=== PATIENT | female | born 1955 | race Caucasian/White ===

== ENCOUNTER 2023-11-19 17:46 | Emergency (ER) | payer SELFPAY ==
--- NOTE | 2023-11-19 17:45 | DI.CT_ITS ---
Exam(s) CT HEAD WO EXAM: CT HEAD WO CLINICAL HISTORY: Acute psychosis. TECHNIQUE: Imaging Protocol: Axial computed tomography images with coronal and sagittal reformatted images were created and reviewed COMPARISON: No exams were available for comparison FINDINGS: There are no skull fractures. There is no fluid in the visualized paranasal sinuses. There is no evidence of intracranial hemorrhage, mass effect, or shift of midline structures. There are no extra-axial fluid collections. The ventricles are not enlarged or shifted and there is no blo od within the ventricular system nor within the basal cisterns. IMPRESSION: No acute intracranial findings on this noninfused CT scan of the brain. RADIATION DOSE DELIVERED: 717.21mGy.cm Total DLP DATA REPOSITORY: All CT scans at this facility are submitted to the National Radiology Data Registry (NRDR) Dose Index Registry (DIR) with the [employer] (ACR). RADIATION OPTIMIZATION: All CT scans at this facility use at least one of these dose optimization te chniques: automated exposure control; mA and/or kV adjustment per patient size (includes targeted exa ms where dose is matched to clinical indication); or iterative reconstruction.
[2023-11-19 17:50] VITALS: BP 139/99; PULSE 100; RESP 18; TEMP 36.2; O2SAT 97
--- NOTE | 2023-11-19 18:03 | ED.GENADUL_ITS ---
Discharge Plan Discharge Details Chief Complaint: PsychEval Clinical Impression: Acute psychosis Primary Care Provider: None,None ED Provider: Paramjit Ureña Home Meds and New Rx's Prescriptions: No Action No Known Home Meds HPI General Date/Time Provider Initiated Documentation: 11/19/23 17:48 . HPI Narrative: 68-year-old female with no known past medical history to us presents today for an eye psychotic episode. Mental health brought the patient in, they received a call from another client of the current patient's atypical behavior. When they went there the patient began stating that she is hearing voices from [employer], and he was telling me to kill the people in the house in really horrible and evil ways. And I feel like I have to do that but at the same time I feel horrible about feeling that way and so I want to kill myself because I feel horrible about those thoughts. Also and I know with some of the SALMA, they do it through their glasses, I can hear them cranking up the volume for the voices in my head! Also I know you think I am crazy and no one will believe me but this is what is happening to the inside of my brain right now. Patient does not discuss anything else. She has no other complaints at this time. Related Data Home Medications Medication Instructions Recorded Confirmed Unknown [No Known Home Meds] 11/19/23 11/19/23 Allergies Allergy/AdvReac Type Severity Reaction Status Date / Time penicillin G Allergy Unknown Other (See Verified 11/19/23 18:44 Comment) General Stated Complaint: PsychEval YOSEF: 2 Review of Systems All systems reviewed & are unremarkable except as noted in HPI and below Exam Narrative Exam Narrative: 1.Const: Well-nourished, Well-developed, appearing stated age 2.Eyes: PERRL, no conjunctival injection, and symmetrical lids. 3.ENT: Atraumatic external nose and ears. Moist MM. Neck: Symmetric, trachea midline, No thyromegaly. 4.CVS: +S1/S2, No murmurs or gallops. Peripheral pulses 2+ and equal in all extremities. Brisk capillary refill in all extremities. 5.RESP: Unlabored respiratory effort. Clear to auscultation bilaterally. No wheezes rales or rhonchi 6.GI: Soft, Nontender/Nondistended, No hepatosplenomegaly. No guarding or rebound. 7.MSK: Normocephalic/Atraumatic, Extremities w/o deformity or ttp No cyanosis or clubbing, Normal movement of all extremities 8.Skin: Warm, Dry. Multiple small excoriated lesions on the back shoulders and low back with the patient states that she has been scratching secondary to rat bites 9.Neuro: marketing program coordinator II-XII grossly intact. Sensation grossly intact, no focal neurolo gic deficits. 10.Psych: (AAO) x3. Actively psychotic, stating that she is actively hearing the devil speak to her and is telling her to kill the people in her house with very KATHY test and nefarious means. She is also talking about the SALMA cranking up the voices in her head Course Vital Signs Vital signs: Vital Signs Temperature 36.2 C L 11/19/23 17:50 Pulse 100 H 11/19/23 17:50 Respiratory Rate 18 11/19/23 17:50 Blood Pressure 139/99 H 11/19/23 17:50 Pulse Oximetry 97 11/19/23 17:50 Temperature 36.2 C L 11/19/23 17:50 Temperature Source Skin 11/19/23 17:50 Pulse 100 H 11/19/23 17:50 Respiratory Rate 18 11/19/23 17:50 Respiratory Effort Normal 11/19/23 17:53 Blood Pressure 139/99 H 11/19/23 17:50 Blood Pressure Position Sitting 11/19/23 17:50 Pulse Oximetry 97 11/19/23 17:50 Oxygen Delivery Method Room Air 11/19/23 17:50 Oxygen Flow Rate 0 11/19/23 17:50 Medical Decision Making 68-year-old female with no known past medical history to us presents today for an eye psychotic episode. Mental health brought the patient in, they received a call from another client of the current patient's atypical behavior. When they went there the patient began stating that she is hearing voices from Karthik, and he was telling me to kill the people in the house in really horrible and evil ways. And I feel like I have to do that but at the same time I feel horrible about feeling that way and so I want to kill myself because I feel horrible about those thoughts. Also and I know with some of the SALMA, they do it through their glasses, I can hear them cranking up the volume for the voices in my head! Also I know you think I am crazy and no one will believe me but this is what is happening to the inside of my brain right now. Patient does not discuss anything else. She has no other complaints at this time. Exam demonstrates a patient and what appears to be acute psychosis with hallucinations. She has multiple excoriation babin on her back and shoulders which she states are from the rats that are eating her. Patient demonstrates a clear psychotic episode. However because of her age and lack of medical history for us I am concerned for other potential medical etiology. We will medically screen the patient for concerning causes. Will get a CT scan of the head, patient shows no clear insight to her scenario and I feel that she needs emergency evaluation for involuntary inpatient admission. We will give 20 of Zyprexa, monitor closely and reassess. Laboratory workup is stable, no significant abnormalities aside for evidence of urinary tract infection. We will administer a single dose of fosfomycin for treatment of this. Toxicology workup otherwise benign. Pending CT scan of the head. 10:[address] scan of the head negative for acute process. Patient medically cleared. I have completed EE certification for the patient. Mental health has as well. We will pend placement for the patient. FINDINGS: Brain: No intracranial mass, midline shift, acute intracranial hemorrhage, nor abnormal extra-axial fluid collections seen. Campos-white matter differentiation appears maintained. Ventricles, sulci do not appear markedly enlarged. Cerebral ventricles: See Brain finding. Paranasal sinuses: Visualized portions paranasal sinuses included appear clear. Mastoid air cells: Slight partial opacification inferior left mastoid air cells. Right mastoid air cells appear clear. Bones/joints: No displaced or depressed skull fracture seen. Soft tissues: Unremarkable. IMPRESSION: No acute intracranial abnormality seen. Please see body of report for findings. Thank you for allowing us to participate in the care of your patient. Dictated and Authenticated by: Rolando Mcrae MD 11/19/2023 7:47 PM Eastern Time ([place] & [place]) Quality:SDOH Health Related Social Needs: No Data to Display PFSH All Active Problems (Updated 11/19/23 @ 22:59 by Paramjit Ureña DO) Acute psychosis (Acute) Social History Smoking/Tobacco Use Status: Unknown Smoking risk assessment performed?: Yes Alcohol Intake: current Alcohol Intake frequency: holidays/special occasions only Substance use type: does not use
[2023-11-19] MEDS: OLANZapine 10 MG TAB 20 MG PO (18:08)
[2023-11-19 18:14] LABS: Bilirubin Negative (Negative); Blood Negative (Negative); Clarity Clear (Clear); Glucose Negative (Negative); Ketones Trace mg/dL (Negative); Leukocyte Esterase Small (Negative); Nitrite Negative (Negative); Specific Gravity >= 1.030 (1.005-1.025); Urobilinogen 0.2 mg/dL (Up to 0.2); pH 5.5 (5-8)
[2023-11-19 18:22] LABS: Bacteria Few HPF (Negative); C & S Indicated? Yes; Casts Negative LPF (Negative); Crystals Negative HPF (Negative); Epithelial Cells Few HPF (Negative); Mucus Negative (Negative); RBC 0-2 HPF (0-2)
[2023-11-19 18:26] LABS: *AMPHETAMINES SCREEN URINE Negative (Negative); *BARBITURATES SCREEN URINE Negative (Negative); *BENZODIAZEPINES SCREEN URINE Negative (Negative); Cannabinoids THC Negative (Negative); Cocaine Screen,Urine Negative (Negative); METHADONE URINE SCREEN Negative (Negative); OPIATES URINE SCREEN Negative (Negative)
[2023-11-19 18:30] LABS: Tricyclic Antidepressants Negative (Negative)
[2023-11-19 18:36] LABS: Abs Immature Grans 0.02 10^3/uL (0.0-0.06); Absolute Basophil Count 0.02 10^3/uL (0.0-0.2); Absolute Eosinophil Count 0.12 10^3/uL (0.0-0.7); Absolute Lymphocyte Count 1.44 10^3/uL (1.2-3.4); Absolute Monocyte Count 0.75 10^3/uL (0.1-0.8); Absolute Neutrophil Count 7.62 10^3/uL (1.2-6.7); Basophils % 0.2; Eosinophils % 1.2; HCT 46.5 % (36.0-46.0); HGB 15.8 g/dL (11.2-15.7); Immature Grans % 0.2; Lymphocytes % 14.4; MCH 30.2 pg (27.0-33.0); MCV 89 fL (80-95); MPV 9.8 fL (8.0-11.0); Monocytes % 7.5; Neutrophils % 76.5; Platelet Count 292 10^3/uL (130-400); RBC 5.23 10^6/uL (3.93-5.22); RDW 12.4 % (11.7-14.6); RDW-SD 40.5 fL; WBC 9.97 10^3/uL (4.4-10.8)
[2023-11-19 19:02] LABS: Acetaminophen < 2 ug/mL (10-30); Salicylate < 2.8 mg/dL (<2.8)
[2023-11-19 19:05] LABS: ALT 39 U/L (14-59); AST 23 U/L (15-37); Albumin 4.1 g/dL (3.4-5.0); Alkaline Phosphatase 82 U/L (46-116); Anion Gap 12.7 mmol/L (3-11); BUN 20 mg/dL (7-18); Bilirubin, Total 0.6 mg/dL (0.2-1.0); CO2 26.3 mmol/L (21.0-32.0); CREATININE 0.9 mg/dL (0.55-1.02); Calcium 9.7 mg/dL (8.5-10.1); Chloride 104 mmol/L (98-107); Glucose 117 mg/dL (74-106); Sodium 143 mmol/L (136-145); TSH (W/Ref FT4) 1.69 uIU/mL (0.36-3.74); Total Protein 7.8 g/dL (6.4-8.2)
[2023-11-19 19:06] LABS: ETHANOL BLOOD < 3.0 mg/dL (<10)
[2023-11-19] MEDS: Fosfomycin Tromethamine 3 GM PACKET PO (19:29)
--- NOTE | 2023-11-19 19:47 | DI.VRAD_ITS ---
PROCEDURE INFORMATION: Exam: CT Head Without Contrast Exam date and time: 11/19/2023 6:52 PM Age: 68 years old Clinical indication: Other: Acute psychosis TECHNIQUE: Imaging protocol: Computed tomography of the head without contrast. COMPARISON: No relevant prior studies available. FINDINGS: Brain: No intracranial mass, midline shift, acute intracranial hemorrhage, nor abnormal extra-axial fluid collections seen. Campos-white matter differentiation appears maintained. Ventricles, sulci do not appear markedly enlarged. Cerebral ventricles: See Brain finding. Paranasal sinuses: Visualized portions paranasal sinuses included appear clear. Mastoid air cells: Slight partial opacification inferior left mastoid air cells. Right mastoid air cells appear clear. Bones/joints: No displaced or depressed skull fracture seen. Soft tissues: Unremarkable. IMPRESSION: No acute intracranial abnormality seen. Please see body of report for findings. Dictated and Authenticated by: Rolando Mcrae MD. Ordering:MARICARMEN Yusuf MD
--- NOTE | 2023-11-19 23:12 | ED.PROG_ITS ---
Date of service: 11/19/23 Time of Service: 23:12 Medical Decision Making This patient was signed out to me. Please see previous notes for H&P and initial eval. In brief, 68o F presenting with new onset psychosis, medically cleared (did receive abx for possible UTI) with unrevealing workup for organic causes, home meds unknown, EEd pending 2nd cert and placement. Telepsych consult in for the morning. Overnight no acute events. Signed out to oncoming physician; plan remains as above. Quality:[facility] Health Related Social Needs: No Data to Display Sign Out Sign Out Data: Sign Out Comment: Acute psychosis with delusions. CT scan negative, metabolic workup negative. Patient denies history of this, and no prior records can be found here or at [facility] of psychiatric history. That being said she does have family members who have psychiatric history. Symptoms inconsistent with meningitis, and at this time appear clinically consistent with acute psychotic breakdown. 20 mg of Zyprexa was given this evening and the patient took this voluntarily. Patient is currently EE'd. Pending placement. Recommend psychiatric consult in the morning for potential medications. Last updated by Paramjit Ureña DO at 11/19/23 23:03 Discharge Plan Discharge Details Chief Complaint: PsychEval Clinical Impression: Acute psychosis Primary Care Provider: None,None ED Provider: Melissa Duncan Home Meds and New Rx's Prescriptions: No Action No Known Home Meds
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
--- NOTE | 2023-11-20 13:41 | NUR.NOTE ---
Nursing Note: Brother Juanjose Eubanks [phone] brought patient cellphone+furnace charger and magnifier for reading. Requests updates PRN.
[2023-11-20 13:50] VITALS: BP 145/84; PULSE 97; RESP 17; TEMP 36.2; O2SAT 98
--- NOTE | 2023-11-20 16:43 | MHPN_ITS ---
Date of service: 11/20/23 Time of Service: 10:15 Mental Health Emergency Note Release [facility] release signed:: No Reason for Visit Prior to yesterday 11/19/2023 the client was not known to [facility]. [facility] received a phone call from the clients niece stating that she needed somebody to talk to her aunt. A mobile crisis response occurred at the clients residence and she was agreeable to go to [facility] for an evaluation. The client presented with auditory h allucinations that are telling her to kill her sister in law Katheryn who she is residing with. The client also endorsed suicidal ideations. Due to level of risk an EE was written on the client. This morning the client is meeting with a psychiatrist from [facility] for 2nd certification. This global technical writer is present via telehealth. In the last 2 weeks has the pt presented for ES prior to today?: No Impression The client is a 68-year-old female, identifies she/her, unemployed who resides sister in law, brother and niece at [address] [place] [address]. The client presents via telehealth for 2nd certification with psychiatrist from [facility], Dr. Flowers for 2nd certification. The client presents sitting up in chair dressed in proper paper hospital attire. According to 2nd cert completed by Dr. Flowers: the client is currently endorsing visual hallucinations, receiving messages from the SALMA, and a belief that the SALMA is controlling things in her life. Ms. Cat sees visions of murdering her siblings whom she lives with, and this is extremely distressing to her to the point that she would rather end her life than act on these images. She also believes that there are rats in the home that are biting and gnawing at her. The client is somewhat cooperative during the assessment, however gives no eye contact and has brief pauses during assessment. This clinician is not yet CAMS trained. Plan/Disposition Recommended Disposition: Hospitalization No. Plan: The client will remain at [facility] ED on EE status pending admission to an inpatient facility. According to Dr. Bethel Flowers he is certifying the 2nd cert. The client will be re-assessed 2x daily by [facility] until placement is secured. Person reported agreement to plan: No Reports/communication Outcome discussed with: ED/Personnel (Verbal passover given to ED provider Dr. Schafer)
--- NOTE | 2023-11-20 17:11 | ED.PROG_ITS ---
Date of service: 11/20/23 Time of Service: 17:11 Medical Decision Making Care was signed out by Dr. Duncan at start of the shift. Patient notably medically cleared. Plan at signout was to await second certification. Second certification was performed today. I spoke with the state appointed psychiatrist who noted concern for potential delirium and questioned UTI as etiology. He was going to speak with patient's family and assess further. I did not hear back from the psychiatrist whether second certification was approved. A telepsychiatrist consult was performed psychiatrist and the following is recommended: 68-year-old female, with history of psychotic disorder, history of suicidal ideation, poor self-care, with no current excessive drug use, no history of violent behavior, no past psychiatric hospitalizations, for suicidal ideation, psychosis. Patient reports no previous psychiatric history. Given her age and largely benign medical workup could be a possible delusional disorder which occurs in older females in a 2;1 ratio. Patient is clearly distressed by the command auditory hallucinations and would benefit from trial of risperidone. Patient presently meets criteria for inpatient psychiatric hospitalization. Initiate risperidone 0.5 mg twice daily for symptoms of psychosis, would obtain baseline EKG to ensure there is no prolongation of QTC. Dementia/Delirium: AVOID BENZODIAZEPINES, ANTICHOLINERGICS, ANTIHISTAMINES, AND OTHER SEDATING MEDICATIONS, which may PRECIPITATE and worsen delirium Please obtain baseline EKG to monitor for QTc prolongation, cardiac arrhythmias, and torsades de pointes. Would maintain potassium above 4.0 and magnesium above 2.0 Will obtain EKG. Quality:[facility] Health Related Social Needs: No Data to Display Sign Out Sign Out Data: Sign Out Comment: Acute psychosis with delusions. CT scan negative, metabolic workup negative. Patient denies history of this, and no prior records can be found here or at [facility] of psychiatric history. That being said she does have family members who have psychiatric history. Symptoms inconsistent with meningitis, and at this time appear clinically consistent with acute psychotic breakdown. 20 mg of Zyprexa was given this evening and the patient took this voluntarily. Patient is currently EE'd. Pending placement. Recommend psychiatric consult in the morning for potential medications. Last updated by Paramjit Ureña DO at 11/19/23 23:03 Sign Out Comment: New psychosis, medical workup unrevealing, medically cleared. EEd pending 2nd cert. Pending telepsych, placement. Last updated by Melissa Duncan MD at 11/20/23 06:18 Discharge Plan Discharge Details Chief Complaint: PsychEval Clinical Impression: Acute psychosis Primary Care Provider: None,None ED Provider: Mauricio Schafer Home Meds and New Rx's Prescriptions: No Action No Known Home Meds
--- NOTE | 2023-11-20 17:15 | RT.EKG_ITS ---
APPROVED REPORT Exam: Resting ECG Reason for Exam: [facility] qtc Patient Location: E HR:84 bpm ECG Measurements Heart Rate 84 AXIS IL 134 P 44 QRSd 92 QRS 18 QT 365 T 49 QTc 431 Conclusion Sinus rhythm...normal P axis, V-rate 60- 99
--- NOTE | 2023-11-20 18:06 | CMSP_ITS ---
Date of service: 11/20/23 Time of Service: 18:06 Care Management Safety Plan Status Status: Involuntary Reason for Wait Reason for Wait: Inpatient Admission Safety Plan Safety Plan: INVOLUNTARY FOR INPATIENT PSYCHIATRIC STABILIZATION.? Patient is appropriate in all interactions since arriving at [facility]; Pt has demonstrated appropriate coping and communication skills, has articulated his or her needs and concerns and is fully engaged during staff interactions. Safety plan has been established with patient, and care team, to adhere to patient goals, identify restrictions based on behavioral status, address nutrition, and determine allowed personal belongings, tools for hygiene and personal care. Determine level of activity including ambulation, level of supervision, visitors, and determine privileges based on behaviors and level of engagement by pt. SAFETY PLAN: 1. Will remain on suicide precautions, in paper clothes 2. Will remain in Zone B under direct supervision of one-on-one staff at all times provided by [employer]; ÁNGEL, TABLET TECHNICIAN seat pack inspector. 3. May have paper cups, plates, finger foods as well as a cardboard spoon with which to eat meals. 4. Follow [facility] Management of the Admitted Behavioral Health Patient policy. 5. Shower available in Zone B without restriction. 6. Personal belongings-soft items permitted at RN discretion. 7. Visitors- at RN discretion 8. Activities: soft cart items approved per RN discretion. 9.? Bathroom available in Zone B without restriction. 10. Phone:incoming/outgoing calls limited to [facility] cordless phone at RN discretion. Due to INVOLUNTARY status, patient is being held at [facility] by the Department of Mental Health ([facility]) until 2nd certification by [facility] Psychiatrist can be performed (within 24 hours). Staff will provide de-escalation support (CPI) as needed. If patient wishes to leave [facility], staff will contact [facility] Crisis Screener ([phone]) and Guest Services ([phone]) as soon as possible. In the event of elopement, notify [place] [employer] Police ([phone]). Patient is currently involuntarily at [facility]. [facility] Frontline Net Web Application Developer will continue seeking placement. Please contact the Guest Services for any needed changes to Safety Plan. Safety plan has been provided to interdepartmental care team. Patient will be transported by deputy chief sheriff at time of discharge.
--- NOTE | 2023-11-20 18:06 | PDOC.CMSAFE ---
Date of service: 11/20/23 Time of Service: 18:06 Care Management Safety Plan Status Status: Involuntary Reason for Wait Reason for Wait: Inpatient Admission Safety Plan Safety Plan: INVOLUNTARY FOR INPATIENT PSYCHIATRIC STABILIZATION.? Patient is appropriate in all interactions since arriving at [facility]; Pt has demonstrated appropriate coping and communication skills, has articulated his or her needs and concerns and is fully engaged during staff interactions. Safety plan has been established with patient, and care team, to adhere to patient goals, identify restrictions based on behavioral status, address nutrition, and determine allowed personal belongings, tools for hygiene and personal care. Determine level of activity including ambulation, level of supervision, visitors, and determine privileges based on behaviors and level of engagement by pt. SAFETY PLAN: 1. Will remain on suicide precautions, in paper clothes 2. Will remain in Zone B under direct supervision of one-on-one staff at all times provided by [employer]; ÁNGEL, SEALS ENGRAVER senior java engineer. 3. May have paper cups, plates, finger foods as well as a cardboard spoon with which to eat meals. 4. Follow [facility] Management of the Admitted Behavioral Health Patient policy. 5. Shower available in Zone B without restriction. 6. Personal belongings-soft items permitted at RN discretion. 7. Visitors- at RN discretion 8. Activities: soft cart items approved per RN discretion. 9.? Bathroom available in Zone B without restriction. 10. Phone:incoming/outgoing calls limited to [facility] cordless phone at RN discretion. Due to INVOLUNTARY status, patient is being held at [facility] by the Department of Mental Health ([facility]) until 2nd certification by [facility] Psychiatrist can be performed (within 24 hours). Staff will provide de-escalation support (CPI) as needed. If patient wishes to leave [facility], staff will contact [facility] Crisis Screener ([phone]) and Credit Administration Officer ([phone]) as soon as possible. In the event of elopement, notify [place] [employer] Police ([phone]). Patient is currently involuntarily at [facility]. [facility] Frontline Sales Promoter will continue seeking placement. Please contact the Credit Administration Officer for any needed changes to Safety Plan. Safety plan has been provided to interdepartmental care team. Patient will be transported by financial advisor at time of discharge.
--- NOTE | 2023-11-20 18:07 | PDOC.CMPRO ---
Date of service: 11/20/23 Time of Service: 18:07 Care Management Progress Note Progress Note Text Progress Note Text: CM met with staff to huddle regarding Lindsay's plan of care. Per report, Lindsay is currently living with her brother, sister in law and neaneta in [place], [place]. She presented to the ED with auditory hallucinations, stating that the voices are telling her to kill her family members, and she is feeling SI due to the nature of the hallucinations. She was screened in the community at home prior to coming to [facility], where an EE was initiated. She met with [facility] Psychiatrist today, who questioned the possibility of a UTI which could exacerbate her symptoms. Per MD, she does not have a known previous psych history. Urine cultures were sent, and she was given a dose of antibiotics while in the ED. Later in the day, the second certification was upheld. [facility], was waiting on the second certification today, which was delayed while the psychiatrist reviewed her chart. As she is currently involuntary, she will not be permitted to leave the state of [place] for treatment. Caleb Mcbrideeat is reviewing her referral. [facility] [place]; [facility] is only accepting in house referrals at this time. IVAN will continue to follow.
[2023-11-20] MEDS: risperiDONE 0.5 MG TAB PO (20:05)
--- NOTE | 2023-11-20 23:32 | ED.PROG_ITS ---
Date of service: 11/20/23 Time of Service: 23:32 Medical Decision Making This patient was signed out to me. Please see previous notes for H&P and initial eval. In brief, 68o F presenting with new onset psychosis, medically cleared (did receive abx for possible UTI) with unrevealing workup for organic causes, home meds unknown, EEd, 2nd cert done, pending placement. Overnight appeared to be sleeping. No behavioral events. Did not wake for assessment. Signed out to oncoming physician; plan remains as above. Quality:[facility] Health Related Social Needs: No Data to Display Sign Out Sign Out Data: Sign Out Comment: Acute psychosis with delusions. CT scan negative, metabolic workup negative. Patient denies history of this, and no prior records can be found here or at [facility] of psychiatric history. That being said she does have family members who have psychiatric history. Symptoms inconsistent with meningitis, and at this time appear clinically consistent with acute psychotic breakdown. 20 mg of Zyprexa was given this evening and the patient took this voluntarily. Patient is currently EE'd. Pending placement. Recommend psychiatric consult in the morning for potential medications. Last updated by Paramjit Ureña DO at 11/19/23 23:03 Sign Out Comment: New psychosis, medical workup unrevealing, medically cleared. EEd pending 2nd cert. Pending telepsych, placement. Last updated by Melissa Duncan MD at 11/20/23 06:18 Sign Out Comment: Telepsych consult performed and recommends starting risperidone. Second certification examination was performed today. Unclear if second certification approved. Plan to await formal EE determination. Last updated by Mauricio Schafer MD at 11/20/23 17:40 Sign Out Comment: EE second cert complete Last updated by Kam Samson MD at 11/20/23 22:58 Discharge Plan Discharge Details Chief Complaint: PsychEval Clinical Impression: Acute psychosis Primary Care Provider: None,None ED Provider: Melissa Duncan Home Meds and New Rx's Prescriptions: No Action No Known Home Meds
[2023-11-21 07:15] VITALS: BP 153/89; PULSE 100; RESP 16; TEMP 35.9; O2SAT 97
[2023-11-21] MEDS: risperiDONE 0.5 MG TAB PO ×2 (08:49→20:15)
--- NOTE | 2023-11-21 10:18 | NUR.NOTE ---
Accessed chart to determine note on EKG done by what provider. Nursing Note:
--- NOTE | 2023-11-21 19:09 | CMSP_ITS ---
Date of service: 11/21/23 Time of Service: 19:09 Care Management Safety Plan Status Status: Involuntary Reason for Wait Reason for Wait: Inpatient Admission Safety Plan Safety Plan: INVOLUNTARY FOR INPATIENT PSYCHIATRIC STABILIZATION.? Patient is appropriate in all interactions since arriving at [facility]; Pt has demonstrated appropriate coping and communication skills, has articulated his or her needs and concerns and is fully engaged during staff interactions. Safety plan has been established with patient, and care team, to adhere to patient goals, identify restrictions based on behavioral status, address nutrition, and determine allowed personal belongings, tools for hygiene and personal care. Determine level of activity including ambulation, level of supervision, visitors, and determine privileges based on behaviors and level of engagement by pt. SAFETY PLAN: 1. Will remain on suicide precautions, in paper clothes 2. Will remain in Zone B under direct supervision of one-on-one staff at all times provided by [employer]; ÁNGEL, DIESEL TECHNICIAN MECHANIC author agent. 3. May have paper cups, plates, finger foods as well as a cardboard spoon with which to eat meals. 4. Follow [facility] Management of the Admitted Behavioral Health Patient policy. 5. Shower available in Zone B without restriction. 6. Personal belongings-soft items permitted at RN discretion. 7. Visitors- at RN discretion 8. Activities: soft cart items approved per RN discretion. 9.? Bathroom available in Zone B without restriction. 10. Phone:incoming/outgoing calls limited to [facility] cordless phone at RN discretion. Due to INVOLUNTARY status, patient is being held at [facility] by the Department of Mental Health ([facility]) until 2nd certification by [facility] Psychiatrist can be performed (within 24 hours). Staff will provide de-escalation support (CPI) as needed. If patient wishes to leave [facility], staff will contact [facility] Crisis Screener ([phone]) and Cafeteria Or Lunchroom Checker ([phone]) as soon as possible. In the event of elopement, notify [place] [employer] Police ([phone]). Patient is currently involuntarily at [facility]. [facility] Frontline Head Chef will continue seeking placement. Please contact the Cafeteria Or Lunchroom Checker for any needed changes to Safety Plan. Safety plan has been provided to interdepartmental care team. Patient will be transported by wax ball molder at time of discharge.
--- NOTE | 2023-11-21 19:09 | PDOC.CMSAFE ---
Date of service: 11/21/23 Time of Service: 19:09 Care Management Safety Plan Status Status: Involuntary Reason for Wait Reason for Wait: Inpatient Admission Safety Plan Safety Plan: INVOLUNTARY FOR INPATIENT PSYCHIATRIC STABILIZATION.? Patient is appropriate in all interactions since arriving at [facility]; Pt has demonstrated appropriate coping and communication skills, has articulated his or her needs and concerns and is fully engaged during staff interactions. Safety plan has been established with patient, and care team, to adhere to patient goals, identify restrictions based on behavioral status, address nutrition, and determine allowed personal belongings, tools for hygiene and personal care. Determine level of activity including ambulation, level of supervision, visitors, and determine privileges based on behaviors and level of engagement by pt. SAFETY PLAN: 1. Will remain on suicide precautions, in paper clothes 2. Will remain in Zone B under direct supervision of one-on-one staff at all times provided by [employer]; ÁNGEL, WEATHER ANCHOR senior game advisor. 3. May have paper cups, plates, finger foods as well as a cardboard spoon with which to eat meals. 4. Follow [facility] Management of the Admitted Behavioral Health Patient policy. 5. Shower available in Zone B without restriction. 6. Personal belongings-soft items permitted at RN discretion. 7. Visitors- at RN discretion 8. Activities: soft cart items approved per RN discretion. 9.? Bathroom available in Zone B without restriction. 10. Phone:incoming/outgoing calls limited to [facility] cordless phone at RN discretion. Due to INVOLUNTARY status, patient is being held at [facility] by the Department of Mental Health ([facility]) until 2nd certification by [facility] Psychiatrist can be performed (within 24 hours). Staff will provide de-escalation support (CPI) as needed. If patient wishes to leave [facility], staff will contact [facility] Crisis Screener ([phone]) and Stitch Cleaner ([phone]) as soon as possible. In the event of elopement, notify [place] [employer] Police ([phone]). Patient is currently involuntarily at [facility]. [facility] Frontline Copy Center Associate will continue seeking placement. Please contact the Stitch Cleaner for any needed changes to Safety Plan. Safety plan has been provided to interdepartmental care team. Patient will be transported by television announcer at time of discharge.
--- NOTE | 2023-11-21 19:10 | CMPROGNOTE_ITS ---
Date of service: 11/21/23 Time of Service: 19:10 Care Management Progress Note Progress Note Text Progress Note Text: CM met with staff to huddle regarding Lindsay's plan of care. Per [facility], Lindsay continues to present with delusional thoughts, making statements such as kill me now. Lindsay is involuntary, and is being reviewed for admission at [facility]. Lindsay is listed as self pay; Access verified her insurance coverage today and found that she has MCR A only; she does not have TIERA at this time. [facility] is an inpatient facility, therefore this should not be a barrier. CM will request assistance from [facility] if her insurance becomes a barrier, as she is an involuntary patient. No changes to safety plan today. CM will continue to follow.
--- NOTE | 2023-11-21 21:06 | MHPN_ITS ---
Date of service: 11/21/23 Time of Service: 10:35 Mental Health Emergency Note Release [facility] release signed:: No Reason for Visit Prior to Monday11/19/2023 the client was not known to [facility]. [facility] received a phone call from the clients niece stating that she needed somebody to talk to her aunt. A mobile crisis response occurred at the clients residence and she was agreeable to go to [facility] for an evaluation. The client presented with auditory hallucinations that are telling her to kill her sister in law Katheryn who she is residing with. The client also endorsed suicidal ideations. Due to level of risk an EE was written on the client. The client has second certification with psychiatrist yesterday, which passed. This speech writer meets with the client via zoom for daily re-assessment. In the last 2 weeks has the pt presented for ES prior to today?: No Additional Issues: Assaultive/Threatening Behavior: No Medical Concerns: No Client engaged in active self harm w/weapon: No Threatening to run away: No Child reported abuse/neglect: No Voluntarily presenting for services: No Domestic violence is a concern: No Extreme Psychosis or extreme behavior is present: Yes Impression The client is a 68-year-old female, identifies she/her, unemployed who resides sister in law, brother and niece at [address] [place] [address]. The client presents sitting up in hospital bed dressed in proper paper hospital attire when this speech writer arrives via zoom. The client reports that she talked to her brother this morning, but this made her very upset as the clients feels like she should not be here due to the intrusive thoughts of wanting to hurt her brother and sister in law. The client reports: nothing is going to help because I have evil thoughts and I am doomed already by the [facility]. The client goes on to state: the [facility] has closed shop on me, I am never going to be able to get my money from my bank account now as the FBI has taken over.' The client reports that she is endorsing suicidal ideations due to the negative thoughts towards her sister in law and brother, however states: I am too much of a coward to do it. The client appears to be continue to present with delusions as well as suicidal and homicidal ideations and continue to meet criteria for an EE at this time. Plan/Disposition Recommended Disposition: Hospitalization No. Plan: The client will remain at [facility] ED on EE status pending placement in an inpatient facility. The clients ref[place] have been [place] [facility], [facility], and [facility]. The client will be re-assessed 2x daily until placement is secured. Person reported agreement to plan: No Reports/communication Outcome discussed with: ED/Personnel (Verbal passover given to ED provider and huddle completed with care management)
--- NOTE | 2023-11-21 22:59 | ED.PROG_ITS ---
Date of service: 11/29/23 Time of Service: 22:59 Medical Decision Making Patient is EE'd pending placement. No issues during shift. Quality:[facility] Health Related Social Needs: No Data to Display Sign Out Sign Out Data: Sign Out Comment: Acute psychosis with delusions. CT scan negative, metabolic workup negative. Patient denies history of this, and no prior records can be found here or at [facility] of psychiatric history. That being said she does have family members who have psychiatric history. Symptoms inconsistent with meningitis, and at this time appear clinically consistent with acute psychotic breakdown. 20 mg of Zyprexa was given this evening and the patient took this voluntarily. Patient is currently EE'd. Pending placement. Recommend psychiatric consult in the morning for potential medications. Last updated by Paramjit Ureña DO at 11/19/23 23:03 Sign Out Comment: New psychosis, medical workup unrevealing, medically cleared. EEd pending 2nd cert. Pending telepsych, placement. Last updated by Melissa Duncan MD at 11/20/23 06:18 Sign Out Comment: Telepsych consult performed and recommends starting risperidone. Second certification examination was performed today. Unclear if second certification approved. Plan to await formal EE determination. Last updated by Mauricio Schafer MD at 11/20/23 17:40 Sign Out Comment: EE second cert complete Last updated by Kam Samson MD at 11/20/23 22:58 Sign Out Comment: EEd, 2nd cert done, awaiting placement. No issues overnight. Last updated by Melissa Duncan MD at 11/21/23 06:02 Sign Out Comment: EEd, psychotic, improving otherwise stable. Notably stable throughout shift. Pending placement Last updated by Paramjit Ureña DO at 11/21/23 16:51 Sign Out Comment: EE + 2nd Cert completed pending involuntary psych placement No issues during shift Last updated by Nakul Polanco MD at 11/21/23 22:29 Discharge Plan Discharge Details Chief Complaint: PsychEval Clinical Impression: Acute psychosis Primary Care Provider: None,None ED Provider: Nakul Polanco Home Meds and New Rx's Prescriptions: No Action No Known Home Meds
[2023-11-22 05:15] VITALS: BP 126/76; PULSE 90; RESP 16; TEMP 36.7; O2SAT 97
[2023-11-22] MEDS: Polyethylene Glycol 3350 17 GM PACKET PO ×2 (05:31→10:37)
--- NOTE | 2023-11-22 06:39 | PDOC.MHPN2 ---
Date of service: 11/21/23 Time of Service: 18:32 Mental Health Emergency Note Release [facility] release signed:: Yes Reason for Visit In the last 2 weeks has the pt presented for ES prior to today?: No Impression Client still suffers from auditory and visual hallucinations. Client reported an increase in sleep. CLient was able to refocus when needed show some improvement to the clients state. CLient still believes that 'Satan and the 'SALMA' are putting thoughts in her head. Client reported that when she leaves [facility] to get transferred to another hospital she will be killed by EMS staff. Plan/Disposition Recommended Disposition: Hospitalization No. Plan: Client will remain at [facility] Zone B while on an involuntary status. Client will continue to need twice daily assessment till placed at an inpatient facility.? Reports/communication Outcome discussed with: ED/Personnel
[2023-11-22] MEDS: risperiDONE 0.5 MG TAB PO ×2 (08:11→21:10)
--- NOTE | 2023-11-22 15:20 | NUR.NOTE ---
Nursing Note: Patient resting, this RN asked if she would like to talk to brother on phone. She said yes. Patient brought phone to nurses station a few minuets later. Appearing agitated and teary eyed. Patient says everything has been taken away from me. There is nothing meaningful to do here This RN suggested several activates and help with turning the TV on for the patient. She declined all suggestions. This nurse also suggested that she not speak on the phone with brother at this time d/t agitation. She agreed with this plan.
--- NOTE | 2023-11-22 16:40 | CMSP_ITS ---
Date of service: 11/22/23 Time of Service: 16:40 Care Management Safety Plan Status Status: Involuntary Reason for Wait Reason for Wait: Inpatient Admission Safety Plan Safety Plan: INVOLUNTARY FOR INPATIENT PSYCHIATRIC STABILIZATION. Patient is appropriate in all interactions since arriving at [facility]; Pt has demonstrated appropriate coping and communication skills, has articulated his or her needs and concerns and is fully engaged during staff interactions. Lindsay appropriately asked for a comb and water, she is ambulating consistently outside of her room and appropriate in interaction. Per [facility], Kb is currently reviewing Lindsay's referral. Safety plan has been established with patient, and care team, to adhere to patient goals, identify restrictions based on behavioral status, address nutrition, and determine allowed personal belongings, tools for hygiene and personal care. Determine level of activity including ambulation, level of supervision, visitors, and determine privileges based on behaviors and level of engagement by pt. SAFETY PLAN: 1. Will remain on suicide precautions, in paper clothes 2. Will remain in Zone B under direct supervision of one-on-one staff at all times provided by [employer]; ÁNGEL, A/C TECHNICIAN director hr communications. 3. May have paper cups, plates, finger foods as well as a cardboard spoon with which to eat meals. 4. Follow [facility] Management of the Admitted Behavioral Health Patient policy. 5. Shower available in Zone B without restriction. 6. Personal belongings-soft items permitted at RN discretion. 7. Visitors- at RN discretion 8. Activities: soft cart items approved per RN discretion. 9.? Bathroom available in Zone B without restriction. 10. Phone:incoming/outgoing calls limited to [facility] cordless phone at RN discretion. Due to INVOLUNTARY status, patient is being held at [facility] by the Department of Mental Health ([facility]) until 2nd certification by [facility] Psychiatrist can be performed (within 24 hours). Staff will provide de-escalation support (CPI) as needed. If patient wishes to leave [facility], staff will contact [facility] Crisis Screener ([phone]) and Junior Copywriter ([phone]) as soon as possible. In the event of elopement, notify [facility] Police ([phone]). Patient is currently involuntarily at [facility]. [facility] Frontline Microbiology Technologist will continue seeking placement. Please contact the Junior Copywriter for any needed changes to Safety Plan. Safety plan has been provided to interdepartmental care team. Patient will be transported by deputy sheriff generalist/bailiff at time of discharge.
--- NOTE | 2023-11-23 07:48 | PDOC.CMSAFE ---
Date of service: 11/23/23 Time of Service: 07:48 Care Management Safety Plan Status Status: Involuntary Safety Plan Safety Plan: INVOLUNTARY FOR INPATIENT PSYCHIATRIC STABILIZATION.? Patient is appropriate in all interactions since arriving at [facility]; Pt has demonstrated appropriate coping and communication skills, has articulated his or her needs and concerns and is fully engaged during staff interactions. Safety plan has been established with patient, and care team, to adhere to patient goals, identify restrictions based on behavioral status, address nutrition, and determine allowed personal belongings, tools for hygiene and personal care. Determine level of activity including ambulation, level of supervision, visitors, and determine privileges based on behaviors and level of engagement by pt. SAFETY PLAN: 1. Will remain on suicide precautions, in paper clothes 2. Will remain in Zone B under direct supervision of one-on-one staff at all times provided by [employer]; ÁNGEL, DIRECTOR OPERATING ROOM client administrator. 3. May have paper cups, plates, finger foods as well as a cardboard spoon with which to eat meals. 4. Follow [facility] Management of the Admitted Behavioral Health Patient policy. 5. Shower available in Zone B without restriction. 6. Personal belongings-soft items permitted at RN discretion. 7. Visitors- at RN discretion 8. Activities: soft cart items approved per RN discretion. 9.? Bathroom available in Zone B without restriction. 10. Phone:incoming/outgoing calls limited to [facility] cordless phone at RN discretion. Due to INVOLUNTARY status, patient is being held at [facility] by the Department of Mental Health ([facility]) until 2nd certification by [facility] Psychiatrist can be performed (within 24 hours). Staff will provide de-escalation support (CPI) as needed. If patient wishes to leave [facility], staff will contact [facility] Crisis Screener ([phone]) and Cell Builder ([phone]) as soon as possible. In the event of elopement, notify [place] [employer] Police ([phone]). Patient is currently involuntarily at [facility]. [facility] Frontline Supervisor [employer] Placing will continue seeking placement. Please contact the Cell Builder for any needed changes to Safety Plan. Safety plan has been provided to interdepartmental care team. Patient will be transported by [employer] at time of discharge.
[2023-11-23] MEDS: risperiDONE 0.5 MG TAB PO (08:27)
[2023-11-23 08:34] VITALS: BP 134/80; PULSE 89; RESP 18; TEMP 36.2; O2SAT 100
--- NOTE | 2023-11-23 11:21 | PDOC.MHPN2 ---
Date of service: 11/22/23 Time of Service: 11:50 Mental Health Emergency Note Release [facility] release signed:: No Reason for Visit Prior to Monday11/19/2023 the client was not known to [facility]. [facility] received a phone call from the clients niece stating that she needed somebody to talk to her aunt. A mobile crisis response occurred at the clients residence and she was agreeable to go to [facility] for an evaluation. The client presented with auditory hallucinations that are telling her to kill her sister in law Katheryn who she is residing with. The client also endorsed suicidal ideations. Due to level of risk an EE was written on the client. The client has second certification with psychiatrist on Monday, which passed. This automotive service writer meets with the client in person for daily re-assessment. In the last 2 weeks has the pt presented for ES prior to today?: No Impression The client is a 68-year-old female, identifies she/her, unemployed who resides sister in law, brother and niece at [address] [place] [address]. The client is pacing around zone b at [facility] when this automotive service writer arrives in person. The client is verbally redirectable and sits at the table in the common area of zone be to have a conversation with this automotive service writer. The client reports that she is doing terrible this morning as she is unable to leave the unit and go outside. The client reports that she would like to be able to go outside and walk around as she is an active person and really needs fresh air. This automotive service writer explains that unfortunately going outside is not an option. The client is still presenting with delusions stating to this automotive service writer: I had money in the bank, but I know that I don't anymore as the [employer] has taken all of my money and my identity, I am really doomed. The client reports that she is currently endorsing suicidal ideations due to the homicidal ideations that she is having towards her family members, however states: I am too much of a coward to do anything. The client goes on to state: god doesn't want us to kill ourselves, but I feel like everything has been taken from me. Plan/Disposition Recommended Disposition: Hospitalization No. Plan: The client will remain at [facility] ED on EE status pending placement in an inpatient facility. The clients referrals have been faxed to [facility], [facility], [facility], and [facility]. Per this writers conversation with Stefano, occasional caregiver from [facility] the client has been accepted by [facility] for admission tomorrow. Person reported agreement to plan: No Reports/communication Outcome discussed with: ED/Personnel (Verbal passover given to ED provider Dr. Ureña)
== END 2023-11-23 15:09 ==
PROVIDERS: Student in an Organized Health Care Education/Training Program; Emergency Provider Emergency Medicine
DX: F23 Brief psychotic disorder (principal)
CPT/HCPCS: 00123; 80053; 80307; 93005; 99285; 70450; 80320; 80329; 81003; 81015; 84443; 85025; 87086; 93010; J3490